=== PATIENT | female | born 1955 | race Caucasian/White ===

== ENCOUNTER 2016-05-25 10:45 | Outpatient (CLI) | payer BC | END 2016-05-25 10:46 | disposition home or self-care (01) | DX: Z12.31 Encounter for screening mammogram for malignant neoplasm of breast (principal) ==

== ENCOUNTER 2017-11-12 21:55 | Emergency (ER) | payer BC ==
[2017-11-12 23:32] LABS: BASOPHILS % (AUTO) 0.7 %; EOSINOPHILS # (AUTO) 0.3 10^3/uL (0.0-0.7); EOSINOPHILS % (AUTO) 4.7 %; HGB - HEMOGLOBIN 14.3 g/dL (12.0-16.0); LYMPHOCYTES # (AUTO) 2.1 10^3/uL (1.5-3.5); LYMPHOCYTES % (AUTO) 35.1 %; MEAN CORPUSCULAR HEMOGLOBIN 32.1 pg (27.0-31.0); MEAN CORPUSCULAR HGB CONC 34.5 g/dL (32.0-36.0); MEAN CORPUSCULAR VOLUME 93.2 fL (81.0-99.0); MEAN PLATELET VOLUME 7.9 fL (7.9-10.8); MONOCYTES # (AUTO) 0.4 10^3/uL (0.0-1.0); MONOCYTES % (AUTO) 7.1 %; NEUTROPHILS # (AUTO) 3.2 10^3/uL (1.5-6.6); NEUTROPHILS % (AUTO) 52.4 %; PLT - PLATELET COUNT 205 10^3/uL (130-450); RED BLOOD COUNT 4.45 10^6/uL (4.20-5.40); RED CELL DISTRIBUTION WIDTH 12.8 % (12.0-15.0); WHITE BLOOD COUNT 6.1 x10^3/uL (4.8-10.8)
[2017-11-12 23:44] LABS: ALBUMIN 3.9 g/dL (3.2-5.5); ALBUMIN/GLOBULIN RATIO 1.1 (1.0-2.2); BILIRUBIN,TOTAL 0.8 mg/dL (0.2-1.0); CALCIUM 9.1 mg/dL (8.5-10.3); CREATININE 0.7 mg/dL (0.4-1.0); TOTAL PROTEIN 7.5 g/dL (6.7-8.2)
[2017-11-13] MEDS ORDERED: SODIUM CHLORIDE 0.9% 1,000 ML IV ONE (00:47)
[2017-11-13] MEDS ORDERED: MECLIZINE 12.5 MG TABLET PO STA (00:47)
--- NOTE | 2017-11-13 01:54 | ED Physician Documentation ---
History of Present Illness - Stated complaint Stated Complaint: HBP/DIZZY/DIARRHEA - Chief complaint Chief Complaint: Neuro - History obtained from History obtained from: Patient - History of Present Illness Timing: Today - Additonal information Additional information: Patient is a 62 year old female presenting to the emergency department for vertigo. patient states that she has had a few different episodes. patient reports it is better if she holds her head still and worse when she moves it. Patient states that her blood pressure was high with the episode so she came to be evaluated. patient denies any ataxia. Review of Systems Constitutional: denies: Fever, Chills Eyes: denies: Photophobia Cardiac: denies: Chest pain / pressure, Palpitations, Pedal edema Respiratory: denies: Dyspnea GI: reports: Nausea. denies: Vomiting, Constipation, Diarrhea Neurologic: reports: Other (vertigo). 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 - Present Medications Home Medications: Ambulatory Orders Medication Instructions Recorded Confirmed Thyroid [[place] Thyroid] 60 mg PO DAILY 03/20/15 11/12/17 Lisinopril 40 mg PO DAILY 11/12/17 11/12/17 Meclizine HCl 25 mg PO TID #20 tab.chew 11/13/17 - Allergies Allergies/Adverse Reactions: Allergies Allergy/AdvReac Type Severity Reaction Status Date / Time No Known Drug Allergies Allergy Verified 11/12/17 22:11 - Social History Does the pt smoke?: No Smoking Status: Never smoker Does the pt drink ETOH?: No Does the pt have substance abuse?: No - Immunizations Immunizations are current?: Yes PD ED PE NORMAL - Vitals Vital signs reviewed: Yes - General General: Alert and oriented X 3 - HEENT HEENT: Atraumatic, PERRL - Neck Neck: Supple, no meningeal sign - Cardiac Cardiac: RRR, No murmur - Respiratory Respiratory: No respiratory distress - Abdomen Abdomen: Soft, Non tender, Non distended - Derm Derm: Normal color, Warm and dry - Extremities Extremities: No deformity - Neuro Neuro: Alert and oriented X 3, circular tank cooper 2-12 intact, No motor deficit, Normal speech Eye Opening: Spontaneous PD ED PE EXPANDED - Neuro Neuro: Nystagmus, Cerebellar nl, Normal gait, Normal speech Results - Vitals Vitals: Vital Signs - 24 hr 11/12/17 11/13/17 11/13/17 22:08 00:33 02:07 Temperature 36.7 C Heart Rate 76 69 68 Respiratory 20 18 18 Rate Blood Pressure 163/86 H 188/83 H 130/80 O2 Saturation 97 99 100 Oxygen O2 Source Room air - EKG (time done) 0029 Rate: Rate (enter#) (64) Rhythm: NSR [place]: Normal Intervals: Normal NE QRS: Normal Ischemia: Normal ST segments - Labs Labs: Laboratory Tests 11/12/17 11/12/17 11/12/17 23:22 23:22 23:22 WBC 6.1 RBC 4.45 Hgb 14.3 Hct 41.5 MCV 93.2 MCH 32.1 H MCHC 34.5 RDW 12.8 Plt Count 205 MPV 7.9 Neut # (Auto) 3.2 Lymph # (Auto) 2.1 Elliott # (Auto) 0.4 Eos # (Auto) 0.3 Baso # (Auto) 0.0 Absolute Nucleated RBC 0.00 Nucleated RBC % 0.0 Sodium 138 Potassium 3.9 Chloride 106 Carbon Dioxide 26 Anion Gap 6.0 BUN 19 Creatinine 0.7 Estimated GFR (MDRD) 85 L Glucose 107 H Calcium 9.1 Total Bilirubin 0.8 AST 17 ALT 21 Alkaline Phosphatase 68 Troponin I < 0.04 B-Natriuretic Peptide Total Protein 7.5 Albumin 3.9 Globulin 3.6 Albumin/Globulin Ratio 1.1 Lipase 35 11/12/17 23:22 WBC RBC Hgb Hct MCV MCH MCHC RDW Plt Count MPV Neut # (Auto) Lymph # (Auto) Elliott # (Auto) Eos # (Auto) Baso # (Auto) Absolute Nucleated RBC Nucleated RBC % Sodium Potassium Chloride Carbon Dioxide Anion Gap BUN Creatinine Estimated GFR (MDRD) Glucose Calcium Total Bilirubin AST ALT Alkaline Phosphatase Troponin I B-Natriuretic Peptide 34 Total Protein Albumin Globulin Albumin/Globulin Ratio Lipase PD MEDICAL DECISION MAKING - ED course Complexity details: reviewed old records, reviewed results, re-evaluated patient , considered differential, d/w patient ED course: Patient was seen and examined at bedside. patient was well appearing and in no distress. ekg was performed and was within normal limits. patient's findings were consistent with bpv, with no evidence of posterior stroke. Patient was treated with IV fluids and meclizine. Patient required no further inpatient work up and was stable for discharge with outpatient follow up. - Sepsis Event Vital Signs: Vital Signs - 24 hr 11/12/17 11/13/17 11/13/17 22:08 00:33 02:07 Temperature 36.7 C Heart Rate 76 69 68 Respiratory 20 18 18 Rate Blood Pressure 163/86 H 188/83 H 130/80 O2 Saturation 97 99 100 Oxygen O2 Source Room air Departure - Departure Disposition: 01 Home, Self Care Clinical Impression: Vertigo Condition: Good Instructions: ED BPV Vertigo, Meclizine Follow-Up: Guillermo Hollingsworth MD [Primary Care Provider] - Prescriptions: Meclizine HCl 25 mg PO TID #20 tab.chew Comments: your diagnostics today were within normal limits. your symptoms are being caused by benign positional vertigo which is an inner ear issue. it is important that you stay well hydrated and you can take the meclizine as needed. you should follow up with your doctor if your symptoms don't improve. you may return to the emergency department at any time for new, worsening or uncontrollable symptoms. Discharge Date/Time: 11/13/17 02:06
[2017-11-13 02:08] VITALS: BP 130/80
== END 2017-11-13 02:06 | disposition home or self-care (01) ==
LOC: ED 21:55
DX: H81.10 Benign paroxysmal vertigo, unspecified ear (principal); I10 Essential (primary) hypertension
CPT/HCPCS: 36415; 80053; 83690; 83880; 84484; 85025; 93005; 96360; 99283; A9270

== ENCOUNTER 2018-04-26 15:36 | Outpatient (CLI) | payer BC ==
--- NOTE | 2018-04-29 10:14 | XRAY Report ---
Reason: atramatic r knee pain-worse Procedure Date: 04/26/2018 Accession Number: [id number] / [id number] Procedure: XRN - Knee 3 View RT CPT Code: FULL RESULT: EXAM: RIGHT KNEE RADIOGRAPHY EXAM DATE: 04/26/2018 03:54 PM. CLINICAL HISTORY: Atraumatic right knee pain -worse. COMPARISON: KNEE 4 VIEW RT 03/20/2015 11:02 AM. TECHNIQUE: 3 views. FINDINGS: Bones: Normal. No fractures or bone lesions. Joints: Normal alignment. No subluxation. There is mild joint space narrowing and marginal osteophyte formation at the medial and patellofemoral compartments, similar to prior. There is a very small knee joint effusion. Soft Tissues: Normal. No soft tissue swelling. IMPRESSION: 1. No acute osseous abnormality. 2. Very small knee joint effusion. 3. Mild degenerative osteoarthritis, similar to prior. Kellgren Bernardo Grade 2. Kellgren and Bernardo classification of osteoarthritis: Grade 0: no radiographic features of osteoarthritis are present Grade 1: doubtful joint space narrowing (JSN) and possible osteophytic lipping Grade 2: definite osteophytes and possible JSN on anteroposterior weight-bearing radiograph Grade 3: multiple osteophytes, definite JSN, sclerosis, possible bony deformity Grade 4: large osteophytes, marked JSN, severe sclerosis and definite bony deformity RADIA
== END 2018-04-26 15:37 | disposition home or self-care (01) ==
LOC: DI.N 15:36
PROVIDERS: ATTEND Family Medicine
DX: M17.11 Unilateral primary osteoarthritis, right knee (principal); M25.461 Effusion, right knee

== ENCOUNTER 2019-02-21 10:56 | Outpatient (CLI) | payer BC ==
--- NOTE | 2019-02-23 01:05 | XRAY Report ---
Reason: R SHOULDER PAIN Procedure Date: 02/21/2019 Accession Number: [id number] / [id number] Procedure: XRN - Shoulder 3 View RT CPT Code: FULL RESULT: EXAM: RIGHT SHOULDER RADIOGRAPHY EXAM DATE: 02/21/2019 11:41 AM. CLINICAL HISTORY: Right shoulder pain. COMPARISON: None. TECHNIQUE: 3 views. FINDINGS: Bones: Normal. No fracture or bone lesion. Joints: A couple of calcifications are seen in the region of the right distal rotator cuff at the lateral posterior aspect, largest measures 7 mm, can be seen with calcific tendinitis. Minimal acromioclavicular and glenohumeral degenerative joint disease with osteophytes. No dislocation. Soft tissues: The visualized hemithorax is unremarkable. No soft tissue swelling. IMPRESSION: A couple of calcifications are seen in the region of the right distal rotator cuff at the lateral posterior aspect, largest measures 7 mm, can be seen with calcific tendinitis. Minimal acromioclavicular and glenohumeral degenerative joint disease with osteophytes. RADIA
--- NOTE | 2019-02-24 04:57 | XRAY Report ---
Reason: cervical radiculopathy Procedure Date: 02/21/2019 Accession Number: [id number] / [id number] Procedure: XRN - Cervical Spine Complete CPT Code: FULL RESULT: EXAM: CERVICAL SPINE RADIOGRAPHY EXAM DATE: 02/21/2019 11:41 AM. CLINICAL HISTORY: Cervical radiculopathy. COMPARISONS: None. TECHNIQUE: 5 views. FINDINGS: Alignment: Normal. No spondylolisthesis or scoliosis. Bones: The cervical vertebral bodies and posterior elements are well-visualized from the skull base through C7-T1. No fractures or bone lesions. Disks: Degenerative disk disease, with disk space narrowing worst at C5-C6. Facets: Mild facet arthropathy. Neural Foramina: Left osseous neural foraminal narrowing at C5-C6. Soft Tissues: Normal. No prevertebral soft tissue swelling. The visualized lung apices are clear. IMPRESSION: Degenerative changes, with left osseous neural foraminal narrowing at C5-C6. RADIA
== END 2019-02-21 10:57 | disposition home or self-care (01) ==
LOC: DI.N 10:56
PROVIDERS: ATTEND Physician Assistant Medical
DX: M19.011 Primary osteoarthritis, right shoulder (principal); M25.711 Osteophyte, right shoulder; M25.811 Other specified joint disorders, right shoulder; M50.122 Cervical disc disorder at C5-C6 level with radiculopathy; M48.02 Spinal stenosis, cervical region
CPT/HCPCS: 72050

== ENCOUNTER 2020-05-27 15:09 | Outpatient (CLI) | payer BC ==
--- NOTE | 2020-05-28 09:54 | Mammography Report ---
BILATERAL DIGITAL SCREENING MAMMOGRAM 3D/2D: 05/27/2020 CLINICAL: Routine screening. Comparison is made to exam dated: 05/25/2016 mammogram - [facility]. The tissue of both breasts is predominantly fatty. No significant masses, calcifications, or other findings are seen in either breast. There has been no significant interval change. IMPRESSION: NEGATIVE There is no mammographic evidence of malignancy. A 1 year screening mammogram is recommended. This exam was interpreted at Station ID: [id number]. NOTE: For mammograms, a report in lay terms will be sent to the patient. Approximately 15% of breast malignancies will not be visualized mammographically. In the management of a palpable breast mass, a negative mammogram must not discourage biopsy of a clinically suspicious lesion. Electronically Signed By: Harley Reich acr/penrad:05/27/2020 16:34:17 ACR BI-RADS Category 1: Negative 3341F PARENCHYMAL PATTERN: (F) - The breast(s) demonstrate(s) diffuse fatty replacement. BI-RADS CATEGORY: (1) - 1 RECOMMENDATION: (ANNUAL) - Recommend routine annual screening mammography. [id number] 1 year screening LATERALITY: (B)
== END 2020-05-27 15:10 | disposition home or self-care (01) ==
LOC: DI.N 15:09
PROVIDERS: ATTEND Physician Assistant
DX: Z12.31 Encounter for screening mammogram for malignant neoplasm of breast (principal)

== ENCOUNTER 2022-02-16 12:21 | Outpatient (CLI) | payer BC ==
--- NOTE | 2022-02-16 14:41 | XRAY Report ---
PROCEDURE: Ankle 2 View RT INDICATIONS: RIGHT ANKLE PAIN TECHNIQUE: 2 views of the ankle were acquired. COMPARISON: None FINDINGS: Bones: No acute fractures or dislocations. Ankle mortise is normally aligned. No suspicious bony l esions. Moderate plantar calcaneal enthesophyte. Small posterior calcaneal enthesophyte. Soft tissues: No suspicious soft tissue calcification. Mild soft tissue edema surrounding the ankle. IMPRESSION: No acute osseous abnormality. If there is clinical concern or persistent symptoms, addit ional imaging such as repeat radiographs or advanced imaging (e.g. CT, MRI) may be helpful for furthe r evaluation. Reviewed by: Gavin Akers MD on 02/16/2022 2:40 PM PDT Approved by: Gavin Akers MD on 02/16/2022 2:40 PM PDT Station ID: [id number]
== END 2022-02-16 12:22 | disposition home or self-care (01) ==
LOC: DI 12:21
PROVIDERS: ATTEND Student in an Organized Health Care Education/Training Program
DX: M25.571 Pain in right ankle and joints of right foot (principal)

== ENCOUNTER 2023-04-06 15:52 | Outpatient (CLI) | payer BC ==
--- NOTE | 2023-04-06 17:15 | Ultrasound Report ---
PROCEDURE: Pelvic w/Transvaginal INDICATIONS: POST MENOPAUSAL BLEEDING TECHNIQUE: Real-time scanning was performed of the pelvic organs, with image documentation. Additional endovagi nal scanning was necessary due to incomplete visualization of the adnexal and endometrial structures by transabdominal scanning. COMPARISON: None. FINDINGS: Uterus: Uterus is anteverted and normal in size at 7.7 x 4.3 x 6.2 cm. The myometrium is heterogene ous. Endometrial is markedly thickened measuring 15.3 cm. There is focal masslike area in the endomet rium measuring 1.7 x 1.3 x 1.9 cm. Ovaries: The right ovary measures 1.6 x 0.9 x 1.3 cm, with a calculated ovarian volume of 2.9 cc. T he left ovary measures 1.6 x 1.3 x 1.6 cm, with a calculated ovarian volume of 1.8 cc. The ovaries a re small consistent with atrophy. No adnexal masses are seen. No cystic lesions measuring greater th an 3 cm. Other: No pathologic free abdominal or pelvic fluid. IMPRESSION: 1. Endometrium is markedly thickened. In this patient with postmenopausal bleeding, endometrial cance r needs to be excluded. Recommend tissue diagnosis. 2. There is a masslike area in the endometrium measuring 1.7 x 1.3 x 1.9 cm.. Differential diagnoses are endometrial carcinoma versus an endometrial polyp. 3. Atrophic ovaries. 4. No free fluid in pelvis. Reviewed by: Ilda Madrid MD on 04/06/2023 5:14 PM PST Approved by: Ilda Madrid MD on 04/06/2023 5:14 PM PST Station ID: [id number]
== END 2023-04-06 15:53 | disposition home or self-care (01) ==
LOC: DI 15:52
PROVIDERS: ATTEND Obstetrics & Gynecology
DX: N95.0 Postmenopausal bleeding (principal); R93.89 Abnormal findings on diagnostic imaging of other specified body structures; N85.8 Other specified noninflammatory disorders of uterus; N83.312 Acquired atrophy of left ovary; N83.311 Acquired atrophy of right ovary

== ENCOUNTER 2023-04-11 15:21 | Emergency (ER) | payer BC ==
[2023-04-11] MEDS ORDERED: SODIUM CHLORIDE 0.9% 1,000 ML IV STA (15:41)
[2023-04-11] MEDS ORDERED: diphenhydrAMINE INJ 50 MG/ML VIAL IVP STA (15:41)
[2023-04-11] MEDS ORDERED: METOCLOPRAMIDE 10 MG/2 ML VIAL IVP STA (15:41)
[2023-04-11 15:44] VITALS: O2SAT 97
[2023-04-11 16:18] LABS: BASOPHILS % (AUTO) 0.6 %; EOSINOPHILS % (AUTO) 0.2 %; HCT - HEMATOCRIT 41.3 % (37.0-47.0); HGB - HEMOGLOBIN 13.8 g/dL (12.0-16.0); LYMPHOCYTES # (AUTO) 0.7 10^3/uL (1.5-3.5); LYMPHOCYTES % (AUTO) 10.9 %; MEAN CORPUSCULAR HEMOGLOBIN 31.2 pg (27.0-31.0); MEAN CORPUSCULAR HGB CONC 33.4 g/dL (32.0-36.0); MEAN CORPUSCULAR VOLUME 93.2 fL (81.0-99.0); MEAN PLATELET VOLUME 9.7 fL (7.9-10.8); MONOCYTES # (AUTO) 0.5 10^3/uL (0.0-1.0); MONOCYTES % (AUTO) 8.5 %; NEUTROPHILS % (AUTO) 79.6 %; PLT - PLATELET COUNT 187 10^3/uL (130-450); RED BLOOD COUNT 4.43 10^6/uL (4.20-5.40); RED CELL DISTRIBUTION WIDTH 12.3 % (12.0-15.0); WHITE BLOOD COUNT 6.2 x10^3/uL (4.8-10.8)
--- NOTE | 2023-04-11 16:28 | ED Physician Documentation ---
PD HPI HEADACHE - Stated complaint Stated Complaint: RAPP,VOMIT - Chief complaint Chief Complaint: Heent - History obtained from History obtained from: Patient - Additional information Additional information: Patient is a 67-year-old female presenting for evaluation of right-sided headache that is been present since 4:00 this morning that she woke up with. She also reports having associated nausea, vomiting and diarrhea and reports that she needs to vomit sitting on the toilet because then she will also have diarrhea. Denies head injury. No known sick contacts. Denies any recent travel or antibiotic use. Does not take a blood thinner. Nothing makes her symptoms better or worse. Has not been able to tolerate her blood pressure medication today. Denies changes to her vision, chest pain, cough, shortness of air. Yesterday she reports feeling achy as if she was coming down with an illness. Review of Systems Constitutional: denies: Fever Cardiac: denies: Chest pain / pressure Respiratory: denies: Dyspnea GI: reports: Vomiting, Diarrhea. 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 OPERATOR: Tubal ligation - Present Medications Home Medications: Ambulatory Orders Medication Instructions Recorded Confirmed Thyroid [[place] Thyroid] 60 mg PO DAILY 03/20/15 11/12/17 lisinopriL [Lisinopril] 40 mg PO DAILY 11/12/17 11/12/17 Meclizine HCl 25 mg PO TID #20 tab.chew 11/13/17 Ondansetron Odt [Zofran] 4 mg TL Q6H PRN #10 tablet 04/11/23 - Allergies Allergies/Adverse Reactions: Allergies Allergy/AdvReac Type Severity Reaction Status Date / Time No Known Drug Allergies Allergy Verified 04/11/23 15:31 - Social History Does the pt smoke?: No Smoking Status: Never smoker Does the pt drink ETOH?: No Does the pt have substance abuse?: No - Immunizations Immunizations are current?: Yes - POLST Patient has POLST: No PD ED PE NORMAL - General General: Alert and oriented X 3, No acute distress, Well developed/nourished - HEENT HEENT: Atraumatic - Neck Neck: Supple, no meningeal sign - Cardiac Cardiac: RRR, No murmur, Strong equal pulses - Respiratory Respiratory: No respiratory distress, Clear bilaterally - Abdomen Abdomen: Normal bowel sounds, Soft, Non tender, Non distended - Derm Derm: Warm and dry - Neuro Neuro: Alert and oriented X 3, 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 Relevant findings are: Rate 88, normal sinus rhythm, no STEMI, QTc 479 - Labs Labs: Laboratory Tests 04/11/23 04/11/23 16:10 16:10 WBC 6.2 RBC 4.43 Hgb 13.8 Hct 41.3 MCV 93.2 MCH 31.2 H MCHC 33.4 RDW 12.3 Plt Count 187 MPV 9.7 Neut # (Auto) 5.0 Lymph # (Auto) 0.7 L [place] # (Auto) 0.5 Eos # (Auto) 0.0 Baso # (Auto) 0.0 Absolute Nucleated RBC 0.00 Nucleated RBC % 0.0 Sodium 137 Potassium 3.5 Chloride 102 Carbon Dioxide 26 Anion Gap 9.0 BUN 17 Creatinine 0.5 L Estimated GFR (MDRD) 123 Glucose 154 H Calcium 10.0 Total Bilirubin 0.5 AST 18 ALT 19 Alkaline Phosphatase 68 Total Protein 7.6 Albumin 4.5 Globulin 3.1 Albumin/Globulin Ratio 1.5 Lipase 14 PD Medical Decision Making - ED course Complexity details: reviewed results, re-evaluated patient, d/w patient ED course: Patient is a 67-year-old female presenting for evaluation of a headache along with nausea, vomiting and diarrhea today. Noted to have elevated blood pressure but has not taken her antihypertensive today. Normal neuroexam. No signs of meningitis. No fever. Headache features do not suggest subarachnoid hemorrhage. Does not take a blood thinner. Given elevated blood pressure and headache however I did feel it was prudent to obtain a head CT. Head CT is negative for any intracranial hemorrhage. CBC and chemistries were obtained and reviewed without significant findings. Patient is feeling better with Benadryl, Reglan and IV fluids. Reports that the headache has improved but still has some nausea so additional Zofran was given along with her lisinopril. Blood pressure did improve. At this time I do not see signs of hypertensive emergency. She is feeling better and tolerating p.o. Abdominal exam has benign. No further episodes of vomiting or diarrhea here.Patient counseled on need for close follow-up with PCP as well as concerning symptoms to return for. Departure - Departure Disposition: 01 Home, Self Care Clinical Impression: Headache, Nausea vomiting and diarrhea, Hypertension Condition: Stable Instructions: ED Diet Vomiting Diarrhea, ED Headache Tension, ED Hypertension Conf Out Of Control Prescriptions: Ondansetron Odt [Zofran] 4 mg TL Q6H PRN #10 tablet PRN Reason: Nausea / Vomiting Comments: I have sent a prescription for an antinausea medications to [facility] in [place]. Please have close follow-up with your primary care provider, especially regarding your blood pressure which has been elevated here. Return to the ER with any worsening symptoms. Forms: PCP List Discharge Date/Time: 04/11/23 17:46
[2023-04-11 16:35] LABS: ALBUMIN 4.5 g/dL (3.2-5.5); ALBUMIN/GLOBULIN RATIO 1.5 (1.0-2.2); BILIRUBIN,TOTAL 0.5 mg/dL (0.2-1.0); CREATININE 0.5 mg/dL (0.6-1.3); POTASSIUM 3.5 mmol/L (3.5-4.5); TOTAL PROTEIN 7.6 g/dL (6.4-8.9)
[2023-04-11] MEDS ORDERED: lisinopriL 20 MG TABLET PO STA (17:00)
[2023-04-11] MEDS ORDERED: ONDANSETRON 4 MG/2 ML VIAL IVP STA (17:00)
--- NOTE | 2023-04-11 17:22 | CT Report ---
PROCEDURE: HEAD WO INDICATIONS: headache/vomiting/HTN TECHNIQUE: Noncontrast 4.5 mm thick angled axial sections acquired from the foramen magnum to the vertex. For r adiation dose reduction, the following was used: automated exposure control, adjustment of mA and/or kV according to patient size. COMPARISON: None. FINDINGS: Image quality: Excellent. CSF spaces: Basal cisterns are patent. No extra-axial fluid collections. Ventricles are normal in size and shape. Brain: No midline shift. No intracranial masses or hemorrhage. Age-related global volume loss and c hronic microvascular ischemic changes. Benz-white matter interface is normal. Skull and face: Calvarium and visualized facial bones are intact, without suspicious lesions. Sinuses: Visualized sinuses and mastoids are clear. IMPRESSION: No acute intracranial pathology. Reviewed by: Jefe Browne MD on 04/11/2023 5:21 PM PST Approved by: Jefe Browne MD on 04/11/2023 5:21 PM PST Station ID: [id number]
[2023-04-11 17:47] VITALS: BP 175/76
== END 2023-04-11 17:46 | disposition home or self-care (01) ==
LOC: ED 15:21
DX: R51.9 Headache, unspecified (principal); R11.2 Nausea with vomiting, unspecified; R19.7 Diarrhea, unspecified; I10 Essential (primary) hypertension
CPT/HCPCS: 36415; 70450; 80053; 83690; 85025; 93005; 96374; 96375; 99284; A9270; J1200; J2765

== ENCOUNTER 2023-04-13 13:18 | Emergency (ER) | payer BC, MEDICARE ==
--- NOTE | 2023-04-13 13:44 | ED Physician Documentation ---
History of Present Illness - Stated complaint Stated Complaint: SWOLLEN TONGUE - Chief complaint Chief Complaint: Heent - History obtained from History obtained from: Patient - Additonal information Additional information: 67-year-old woman with hypertension since yesterday has had a sore throat, feeling like her tongue is swollen and lost her voice. She has a runny nose with it. No fevers. Very mild cough. 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 : None HEENT: Chronic vision loss Psych: None Musculoskeletal: None Derm: None - Past Surgical History Past Surgical History: Yes General: Appendectomy /BAG BUILDER: Tubal ligation - Present Medications Home Medications: Ambulatory Orders Medication Instructions Recorded Confirmed Thyroid [[place] Thyroid] 60 mg PO DAILY 03/20/15 11/12/17 lisinopriL [Lisinopril] 40 mg PO DAILY 11/12/17 11/12/17 Meclizine HCl 25 mg PO TID #20 tab.chew 11/13/17 Ondansetron Odt [Zofran] 4 mg TL Q6H PRN #10 tablet 04/11/23 hydrOXYzine HCL [Hydroxyzine HCl] 25 mg PO Q6H PRN #20 tablet 04/13/23 - Allergies Allergies/Adverse Reactions: Allergies Allergy/AdvReac Type Severity Reaction Status Date / Time No Known Drug Allergies Allergy Verified 04/11/23 15:31 - Social History Does the pt smoke?: No Smoking Status: Never smoker Does the pt drink ETOH?: No Does the pt have substance abuse?: No - Immunizations Immunizations are current?: Yes - POLST Patient has POLST: No PD ED PE NORMAL - Vitals Vital signs reviewed: Yes - General General: Alert and oriented X 3, No acute distress - HEENT HEENT: Other (She has a laryngitic voice but the visualized portions of the oropharynx were normal without obvious edema.) - Respiratory Respiratory: No respiratory distress - Neuro Neuro: Alert and oriented X 3, Normal speech - Psych Psych: Normal mood, Normal affect Results - Vitals Vitals: Vital Signs - 24 hr 04/13/23 13:29 Temperature 37 C Heart Rate 76 Respiratory 18 Rate Blood Pressure 181/86 H O2 Saturation 98 Oxygen O2 Source Room air PD Medical Decision Making - ED course ED course: 67-year-old woman with viral laryngitis/pharyngitis. Offered steroids but states that they give her intolerable anxiety and would like something to sleep instead. Hydroxyzine prescribed. Departure - Departure Disposition: 01 Home, Self Care Clinical Impression: Viral pharyngitis Condition: Good Record reviewed to determine appropriate education?: Yes Instructions: ED Pharyngitis Viral Prescriptions: hydrOXYzine HCL [Hydroxyzine HCl] 25 mg PO Q6H PRN #20 tablet PRN Reason: Anxiety Comments: I sent your prescription electronically to [facility] in [place]. As discussed you have viral pharyngitis which you will get better but we certainly want to help with your symptoms. You have declined steroids based on prior side effects of same and instead I sent a prescription for hydroxyzine which is a decongestant/anxiety/sleeping medicine. Do not drink or drive with it. Return if worse, follow-up with your doctor on Sunday if not better. Your blood pressure was elevated today on check into the emergency department. This does not mean that you have hypertension, it is a common phenomenon to come to the emergency department and have elevated blood pressure. I recommend that you see your primary care physician within the week to have it rechecked when you are feeling better. Forms: PCP List
[2023-04-13 13:49] VITALS: BP 181/86; O2SAT 98
== END 2023-04-13 13:50 | disposition home or self-care (01) ==
LOC: ED 13:18
DX: J02.8 Acute pharyngitis due to other specified organisms (principal)
CPT/HCPCS: 99282; 99283

== ENCOUNTER 2023-06-01 06:09 | Day surgery (SDC) | payer BC ==
[2023-06-01] MEDS: LACTATED RINGERS 1,000 ML IV ONE (06:14)
[2023-06-01] MEDS ORDERED: PROPOFOL 200 MG/20 ML VIAL IVP ONE (07:00)
[2023-06-01] MEDS ORDERED: LIDOCAINE-PF 2% 10 ML AMP SUBQ ONE (07:00)
[2023-06-01] MEDS ORDERED: fentaNYL 100 MCG/2 ML VIAL ONE (07:01)
[2023-06-01] MEDS ORDERED: MIDAZOLAM 2 MG/2 ML VIAL ONE (07:01)
--- NOTE | 2023-06-01 07:21 | ANESTHESIA ---
Pre-Anesthesia VS, & Labs - Diagnosis postmenopausal bleeding - Procedure myosure d/c Vital Signs: Temp Pulse Resp BP Pulse Ox O2 Flow Rate 36.6 C 86 13 183/84 H 97 06/01/23 06:27 06/01/23 06:27 06/01/23 06:27 06/01/23 06:27 06/01/23 06:27 Height: 5 ft 3 in Weight (kg): 86.4 kg Body Mass Index: 33.7 BMI Classification: Obese - Is Patient ?: No (post menopausal) Home Medications and Allergies Home Medications: Ambulatory Orders Calcium Carbonate [Calcium] 600 mg PO DAILY 05/28/23 Cholecalciferol [Vitamin D3] 25 mcg PO DAILY 05/28/23 Metoprolol Tartrate [Lopressor] 25 mg PO BID 05/28/23 lisinopriL [Lisinopril] 40 mg PO HS 11/12/17 Calcium Carbonate [Calcium] 600 mg PO DAILY 05/28/23 Cholecalciferol [Vitamin D3] 25 mcg PO DAILY 05/28/23 Metoprolol Tartrate [Lopressor] 25 mg PO BID 05/28/23 Allergies/Adverse Reactions: Allergies Allergy/AdvReac Type Severity Reaction Status Date / Time epinephrine AdvReac Severe Unknown Verified 06/01/23 06:47 progesterone AdvReac palpitation Verified 06/01/23 06:42 s steroids AdvReac face Uncoded 06/01/23 06:42 redness and can't sleep Anes History & Medical History - Anesthetic History Anesthesia Complications: reports: Post-Operative Nausea/Vomiting (ponv after a dental procedure; gets vertigo, motion sickness) Family history of Anesthesia Complications: Denies Family history of Malignant Hyperthermia: Denies (unknown what type, denies c/p or sob, uses ladders at work) - Medical History Cardiovascular: reports: Hypertension, Murmur Pulmonary: reports: None Gastrointestinal: reports: None Urinary: reports: Chronic bladder infection, Kidney stones Neuro: reports: None Musculoskeletal: reports: Osteoarthritis Endocrine/Autoimmune: reports: None Blood Disorders: reports: None Skin: reports: None Smoking Status: Former smoker (quit 6 mos ago) Psychosocial: reports: No issues indicated - Surgical History General: reports: Appendectomy Gynecologic: reports: Tubal ligation Exam General: Alert Dental: WNL Mouth Openin Fingerbreadth Neck Mobility: Normal Mallampati classification: III Plan Anesthesia Type: General Consent for Procedure(s) Verified and Reviewed: Yes Code Status: Attempt Resuscitation ASA classification: 2-Mild systemic disease Is this case an emergency?: No
[2023-06-01] MEDS ORDERED: SCOPOLAMINE PATCH TOP ONE (07:33)
[2023-06-01] MEDS: METOPROLOL TARTRATE 25 MG TABLET PO ONE (07:45)
[2023-06-01 08:46] VITALS: O2SAT 98
[2023-06-01] MEDS: cloNIDine 0.1 MG TABLET PO SCH (09:29)
[2023-06-01 10:10] VITALS: BP 195/80
--- NOTE | 2023-06-01 21:19 | DISCHARGE SUMMARY ---
Discharge Summary Admit Date: 06/01/23 Discharge Date: 06/01/23 Code Status: Attempt Resuscitation Condition at Discharge: Good Discharge Disposition: 01 Home, Self Care - DIAGNOSES Admission Diagnoses: abnromal uterine bleeding and abnormal pap smear. Hypertention out of control. - HPI History of Present Illness: patient presents today for hysteroscopy wiht D&C but systolic bps were over 200. - HOSPITAL COURSE Hospital Course: bps was monitored. metoprolol 25 mg was given. care was discussed with pcp Dr. Juan Manuel Cast and then with hospitalist Dr. Jt Robledo. when the metprolol did not affect her bp, she was given 0.1 mg clonidine and that brought her pressure down and she was discharged home. she was encouraged to f/u with Dr. Cast or her mid level provider there. when bp is more controlled, will reschedule. does need surgery to r/o uterine cancer. - ALLERGIES Allergies/Adverse Reactions: Allergies Allergy/AdvReac Type Severity Reaction Status Date / Time epinephrine AdvReac Severe Unknown Verified 06/01/23 06:47 progesterone AdvReac palpitation Verified 06/01/23 06:42 s steroids AdvReac face Uncoded 06/01/23 06:42 redness and can't sleep - MEDICATIONS Home Medications: Ambulatory Orders Medication Instructions Recorded Confirmed lisinopriL [Lisinopril] 40 mg PO HS 11/12/17 06/01/23 Calcium Carbonate [Calcium] 600 mg PO DAILY 05/28/23 06/01/23 Cholecalciferol [Vitamin D3] 25 mcg PO DAILY 05/28/23 06/01/23 Metoprolol Tartrate [Lopressor] 25 mg PO BID 05/28/23 06/01/23 - PHYSICAL EXAM AT DISCHARGE General Appearance: positive: No acute distress Neck: positive: Nml inspection Respiratory: positive: No respiratory distress Cardiovascular: positive: Regular rate & rhythm Abdomen: positive: Non-tender Extremities: positive: Non-tender, No pedal edema Neurologic/Psychiatric: positive: Oriented x3 - FOLLOW UP Follow Up: with Dr. Cast for bp management. we will contact her next week to reschedule her surgery - TIME SPENT Time Spent in Discharge (Minutes): 40
== END 2023-06-01 06:10 | disposition home or self-care (01) ==
LOC: SDS 06:09
PROVIDERS: ATTEND Obstetrics & Gynecology
DX: N95.0 Postmenopausal bleeding (principal); R93.89 Abnormal findings on diagnostic imaging of other specified body structures; I10 Essential (primary) hypertension; E66.9 Obesity, unspecified; Z68.33 Body mass index [BMI] 33.0-33.9, adult; Z53.09 Procedure and treatment not carried out because of other contraindication; Z87.891 Personal history of nicotine dependence
CPT/HCPCS: A9270; J7120

== ENCOUNTER 2023-08-13 07:28 | Outpatient (CLI) | payer BC ==
[2023-08-13 12:38] LABS: ALBUMIN 4.3 g/dL (3.2-5.5); ALBUMIN/GLOBULIN RATIO 1.7 (1.0-2.2); BILIRUBIN,TOTAL 0.3 mg/dL (0.2-1.0); CREATININE 0.7 mg/dL (0.6-1.3); POTASSIUM 3.8 mmol/L (3.5-4.5); TOTAL PROTEIN 6.9 g/dL (6.4-8.9)
== END 2023-08-13 07:29 | disposition home or self-care (01) ==
LOC: LAB.N 07:28
PROVIDERS: ATTEND Obstetrics & Gynecology
DX: R93.89 Abnormal findings on diagnostic imaging of other specified body structures (principal); N95.0 Postmenopausal bleeding
CPT/HCPCS: 36415; 80053

== ENCOUNTER 2023-08-17 06:17 | Day surgery (SDC) | payer BC ==
[2023-08-17] MEDS: LACTATED RINGERS 1,000 ML IV ONE ×2 (06:29→08:41)
[2023-08-17] MEDS: ACETAMINOPHEN 325 MG TABLET PO ONE (06:30)
--- NOTE | 2023-08-17 07:07 | ANESTHESIA ---
Pre-Anesthesia VS, & Labs - Diagnosis post menopausal bleeding, abnormal uterine ultrasound - Procedure myosure hysterscopy, d&C Vital Signs: Temp Pulse Resp BP Pulse Ox O2 Flow Rate 36 C L 71 16 197/73 H 99 08/17/23 06:30 08/17/23 06:30 08/17/23 06:30 08/17/23 06:30 08/17/23 06:30 Height: 5 ft 3 in Weight (kg): 87.9 kg Body Mass Index: 34.3 BMI Classification: Obese - NPO >8 hours - Is Patient ?: No Home Medications and Allergies Home Medications: Ambulatory Orders Losartan Potassium [Cozaar] 100 mg PO DAILY 08/10/23 diphenhydrAMINE [Benadryl] 25 mg PO HS PRN 08/10/23 Calcium Carbonate [Calcium] 600 mg PO DAILY 05/28/23 Cholecalciferol [Vitamin D3] 25 mcg PO DAILY 05/28/23 Metoprolol Tartrate [Lopressor] 50 mg PO HS 05/28/23 Losartan Potassium [Cozaar] 100 mg PO DAILY 08/10/23 diphenhydrAMINE [Benadryl] 25 mg PO HS PRN 08/10/23 Allergies/Adverse Reactions: Allergies Allergy/AdvReac Type Severity Reaction Status Date / Time epinephrine AdvReac Severe Unknown Verified 08/17/23 06:51 progesterone AdvReac palpitation Verified 08/17/23 06:51 s steroids AdvReac face Uncoded 08/17/23 06:51 redness and can't sleep Anes History & Medical History - Anesthetic History Anesthesia Complications: reports: Post-Operative Nausea/Vomiting - Medical History Cardiovascular: reports: Hypertension (current b/p 197/84, will treat with IV meds), Murmur (since childhood. States she has had a normal ECHO) Pulmonary: reports: None Gastrointestinal: reports: None Urinary: reports: Chronic bladder infection, Kidney stones Neuro: reports: Other (vertigo) Musculoskeletal: reports: Osteoarthritis Endocrine/Autoimmune: reports: None Blood Disorders: reports: None Skin: reports: None Smoking Status: Former smoker (quit 6 mos ago) Psychosocial: reports: No issues indicated History of Cancer?: No - Surgical History General: reports: Appendectomy Gynecologic: reports: Tubal ligation Exam General: Alert, Oriented x3, Cooperative, No acute distress Dental: WNL Mouth Openin Fingerbreadth Neck Mobility: Normal Mallampati classification: III Thyromental Distance: 4-6 cm Mental/Cognitive Status: Alert/Oriented X3, Normal for patient Plan Anesthesia Type: General Consent for Procedure(s) Verified and Reviewed: Yes Code Status: Attempt Resuscitation ASA classification: 3-Severe systemic disease Is this case an emergency?: No
[2023-08-17] MEDS ORDERED: ATROPINE ABBOJECT 1 MG/10 ML SYRINGE IVP PRN (07:18)
[2023-08-17] MEDS ORDERED: fentaNYL 100 MCG/2 ML VIAL IVP PRN (07:18)
[2023-08-17] MEDS ORDERED: NALOXONE 0.4 MG/ML VIAL IVP PRN (07:18)
[2023-08-17] MEDS ORDERED: HYDROmorphone 0.5 MG/0.5 ML SYRINGE IVP PRN (07:18)
[2023-08-17] MEDS ORDERED: ONDANSETRON 4 MG/2 ML VIAL IVP PRN (07:18)
[2023-08-17] MEDS ORDERED: MORPHINE 2 MG/ML CARPUJECT IVP PRN (07:18)
[2023-08-17] MEDS ORDERED: MIDAZOLAM 2 MG/2 ML VIAL ONE ×2 (07:21→07:37)
[2023-08-17] MEDS ORDERED: PROPOFOL 200 MG/20 ML VIAL IVP ONE (07:21)
[2023-08-17] MEDS ORDERED: LABETALOL 20 MG/4 ML SYRINGE IVP ONE (07:34)
[2023-08-17] MEDS: LABETALOL 20 MG/4 ML SYRINGE IVP PRN (07:35)
[2023-08-17] MEDS ORDERED: LACTATED RINGERS 1,000 ML IV SCH (08:00)
[2023-08-17] MEDS ORDERED: ONDANSETRON 4 MG/2 ML VIAL ONE (08:10)
[2023-08-17] MEDS ORDERED: GLYCOPYRROLATE 1 MG/5 ML VIAL ONE (08:23)
[2023-08-17] MEDS ORDERED: oxyCODONE 5 MG TABLET PO PRN (08:59)
[2023-08-17] MEDS ORDERED: KETOROLAC 15 MG/ML VIAL ONE (09:03)
[2023-08-17] MEDS: KETOROLAC 15 MG/ML VIAL IVP PRN (09:04)
[2023-08-17 09:28] VITALS: O2SAT 98
[2023-08-17 09:38] VITALS: BP 140/58
--- NOTE | 2023-08-17 12:26 | ANESTHESIA POST OP EVALUATION ---
Anesthesia Post Eval - Post Anesthesia Eval Vitals: Last Vital Signs Temp 36.2 C L 08/17/23 09:33 Pulse 67 08/17/23 09:33 Resp 16 08/17/23 09:33 BP 140/58 H 08/17/23 09:33 Pulse Ox 98 08/17/23 09:33 O2 Flow Rate CV Function Including HR & BP: Stable Pain Control: Satisfactory Nausea & Vomiting: Negative Mental Status: Baseline Respiratory Status: Airway Patent Hydration Status: Satisfactory Anesthesia Complications: None
--- NOTE | 2023-08-22 20:41 | OPERATIVE REPORT ---
Operative Report - General Planned Procedure: hysteroscopy D&C Pre-Op Diagnosis: post menopausal bleeding, abnormal pap, hypertension Procedure Performed: hysteroscopy D&C Post Op Diagnosis: same - Procedure Note Primary Surgeon: Rebeca Sofia MD Anesthesia Provider: Gabby Altamirano CRNA Anesthesia Technique: General LMA Pathology: endocervical curettings, endometrial curettings. IV Fluids (mL): 600 Estimated Blood Loss (mL): 20 Urine Output (mL): 0 Indications: post menopausal bleeding, KENIA pap, HSIL pap. Findings: polypoid endometrial tissue Complications: none - Other Other Information/Narrative: Patient had high bp again. stabilized and brought to OR. LMA anesthesia administered. legs in Ronaldo stirrups. no abx indicated. prepped and draped per protocol. time out done. exam under anesthesia done. speculum placed. cervix grasped with tenaculum. no cervical lesions seen. ECC done. cervix dilated to allow passage of 6 mm hysteroscope. placed with saline as distending solution. polypoid tissue seen. removed with myosure device. Sharp curettage done. instruments removed. Awakened and brought to recovery room in stable condition. no complications. deficit from hysteroscopy 300 cc.
== END 2023-08-17 06:18 | disposition home or self-care (01) ==
LOC: SDS 06:17
PROVIDERS: ATTEND Obstetrics & Gynecology
PROC: 0UDB8ZX Extraction of Endometrium, Via Natural or Artificial Opening Endoscopic, Diagnostic (ICD-10-PCS; principal; 2023-08-17 07:30)
DX: N95.0 Postmenopausal bleeding (principal); N85.02 Endometrial intraepithelial neoplasia [EIN]; R85.611 Atypical squamous cells cannot exclude high grade squamous intraepithelial lesion on cytologic smear of anus (ASC-H); R93.89 Abnormal findings on diagnostic imaging of other specified body structures; F17.200 Nicotine dependence, unspecified, uncomplicated; I10 Essential (primary) hypertension; E66.9 Obesity, unspecified; Z68.34 Body mass index [BMI] 34.0-34.9, adult
CPT/HCPCS: 58558; A9270; J7120